=== PATIENT | male | born 1990 | race Caucasian/White ===

== ENCOUNTER 2017-01-20 12:35 | Emergency (ER) | payer MEDICAID | END 2017-01-20 13:03 | disposition home or self-care (01) | LOC: D.ER 12:35 | DX: F12.10 Cannabis abuse, uncomplicated (principal); F17.200 Nicotine dependence, unspecified, uncomplicated ==

== ENCOUNTER 2017-08-15 14:59 | Emergency (ER) | payer MEDICAID | END 2017-08-15 15:24 | disposition home or self-care (01) | LOC: D.ER 14:59 | DX: K02.9 Dental caries, unspecified (principal); K08.89 Other specified disorders of teeth and supporting structures; S02.5XXA Fracture of tooth (traumatic), initial encounter for closed fracture; X58.XXXA Exposure to other specified factors, initial encounter; Y93.89 Activity, other specified; Y92.029 Unspecified place in mobile home as the place of occurrence of the external cause ==